=== PATIENT | male | born 1950 | race Caucasian/White ===

== ENCOUNTER 2018-11-21 16:56 | Emergency (ER) | payer BC ==
[~2018-11-21] VITALS: Ht 175.3 cm; Wt 93.9 kg
[~2018-11-21 16:56] MED LIST: ATOR40TA PO; Aspirin EC325 MG PO; CLOP75 PO; LISI5 PO; LOSA50 PO; METO25ER PO; NITR.6SL SL; OMEP40CA12 PO
[2018-11-21 18:14] LABS: BASOPHILS ABSOLUTE AUTO 0.08 K/mm3 (0.00-0.23); BASOPHILS PERCENT AUTO 1 % (0-2); EOSINOPHILS ABSOLUTE AUTO 0.44 K/mm3 (0.00-0.68); EOSINOPHILS PERCENT AUTO 5 % (0-6); Hematocrit 33.3 % (37.0-53.0); Hemoglobin 10.3 g/dL (13.5-17.5); IMMATURE GRAN ABSOLUTE AUTO 0.02 K/mm3 (0.00-0.10); IMMATURE GRAN PERCENT AUTO 0 % (0-1); LYMPHOCYTES ABSOLUTE AUTO 2.06 K/mm3 (0.84-5.20); LYMPHOCYTES PERCENT AUTO 23 % (21-46); MONOCYTES ABSOLUTE AUTO 1.16 K/mm3 (0.16-1.47); MONOCYTES PERCENT AUTO 13 % (4-13); Mean Corpuscular HGB Conc 30.9 g/dL (31.5-36.5); Mean Corpuscular Volume 94 fL (80-100); Mean Platelet Volume 10.7 fL (9.1-12.4); NEUTROPHILS PERCENT AUTO 59 % (41-73); Platelet Count 589 K/mm3 (150-400); RDW Coefficient Variation 13.6 % (11.7-14.2); RDW Standard Deviation 47.7 fL (35.1-46.3); Red Blood Cell Count 3.55 M/mm3 (4.30-5.90); White Blood Cell Count 9.16 K/mm3 (4.00-11.30)
[2018-11-21] MEDS ORDERED: REPATHA SU140 MG/1 M SC (18:27)
[2018-11-21] MEDS ORDERED: Lopressor 25 mg25 MG PO (18:28)
[2018-11-21 18:29] LABS: Source, Urine Clean Catch
[2018-11-21 18:34] LABS: Bilirubin, Urine Neg (Neg); Blood, Urine Neg (Neg); Glucose Qualitative, Urine Neg (Neg); Ketones, Urine Neg (Neg); Leukocyte Esterase, Urine 1+ (Neg); Nitrite, Urine Neg (Neg); Protein, Urine Neg (Neg); Specific Gravity, Urine 1.025 (1.003-1.022); Urobilinogen, Urine NORM (Normal)
[2018-11-21 18:59] LABS: Alanine Aminotransfer (ALT/SGP 23 U/L (12-78); Albumin, Blood 3.8 g/dL (3.4-5.0); Albumin/Globulin Ratio 1.2 (0.8-1.8); Alk Phos 76 U/L (50-136); Anion Gap 4 mmol/L (6-16); Aspartate Aminotrans (AST/SGOT 12 U/L (12-37); Bilirubin, Total 0.3 mg/dL (0.1-1.0); Blood Urea Nitrogen 18 mg/dL (8-24); Bun/Creatinine Ratio 20.7 (12.0-20.0); CO2, Blood 26 mmol/L (21-32); Calcium, Blood 8.6 mg/dL (8.5-10.1); Chloride, Blood 110 mmol/L (98-108); Creatinine, Blood 0.87 mg/dL (0.60-1.20); Globulin, Blood 3.2 g/dL (2.2-4.0); Glomerular Filtration Rate >60 (60-); Glucose, Blood 97 mg/dL (70-99); Potassium, Blood 3.9 mmol/L (3.5-5.5); Sodium, Blood 140 mmol/L (136-145)
[2018-11-21 19:01] LABS: Appearance, Urine Clear (Clear); Color, Urine Yellow (P-Yellow)
[2018-11-21 19:06] LABS: Bacteria Few /hpf; Red Blood Cells, Urine 0-2 /hpf (0-2); Squamous Epithelial Cells Rare /hpf (Few)
[2018-11-21] MEDS ORDERED: HYOS.125 PO (21:36)
[2018-11-21] MEDS ORDERED: CEPH500 PO (21:36)
[2018-11-21] MEDS ORDERED: Pyridium100 MG PO (21:36)
== END 2018-11-21 21:54 | disposition home or self-care (01) ==
LOC: ER 16:56
PROVIDERS: Physician Assistant
DX: N30.90 Cystitis, unspecified without hematuria (principal); R14.0 Abdominal distension (gaseous); Z91.018 Allergy to other foods; Z88.5 Allergy status to narcotic agent; Z79.899 Other long term (current) drug therapy; Z79.82 Long term (current) use of aspirin; E78.5 Hyperlipidemia, unspecified; I10 Essential (primary) hypertension; K21.9 Gastro-esophageal reflux disease without esophagitis; Z87.891 Personal history of nicotine dependence
CPT/HCPCS: 36415; 74177; 80053; 81001; 83690; 85025; 87086; 99284-25; Q9967

== ENCOUNTER 2019-10-30 07:51 | Day surgery (SDC) | payer BC ==
[~2019-10-30] VITALS: Ht 175.3 cm; Wt 93.0 kg
[~2019-10-30 07:51] MED LIST changes: +CEPH500 PO; +HYOS.125 PO; +Lopressor 25 mg25 MG PO; +Pyridium100 MG PO; +REPATHA SU140 MG/1 M SC
[2019-10-30] MEDS ORDERED: CLOP75 (08:14)
[2019-10-30] MEDS ORDERED: OMEP20ER (08:14)
--- NOTE | 2019-10-30 09:37 | NUR ---
10/30/19 0937 Lyndsey Dey PROBE 7 AT 40 COAG
== END 2019-10-30 10:04 | disposition home or self-care (01) ==
LOC: ORSCSDS 07:51
PROVIDERS: Internal Medicine Gastroenterology
PROC: 0DB98ZX Excision of Duodenum, Via Natural or Artificial Opening Endoscopic, Diagnostic (ICD-10-PCS; principal; 2019-10-30 09:15)
PROC: 0DB58ZX Excision of Esophagus, Via Natural or Artificial Opening Endoscopic, Diagnostic (ICD-10-PCS; principal; 2019-10-30 09:15)
PROC: 0DJD8ZZ Inspection of Lower Intestinal Tract, Via Natural or Artificial Opening Endoscopic (ICD-10-PCS; principal; 2019-10-30 09:15)
PROC: 0DB68ZX Excision of Stomach, Via Natural or Artificial Opening Endoscopic, Diagnostic (ICD-10-PCS; principal; 2019-10-30 09:15)
PROC: 0D568ZZ Destruction of Stomach, Via Natural or Artificial Opening Endoscopic (ICD-10-PCS; principal; 2019-10-30 09:15)
DX: K30 Functional dyspepsia (principal); R14.0 Abdominal distension (gaseous); K22.70 Barrett's esophagus without dysplasia; Q27.30 Arteriovenous malformation, site unspecified; K57.30 Diverticulosis of large intestine without perforation or abscess without bleeding; K63.89 Other specified diseases of intestine; K64.8 Other hemorrhoids; K44.9 Diaphragmatic hernia without obstruction or gangrene; K21.0 Gastro-esophageal reflux disease with esophagitis; E66.9 Obesity, unspecified; Z68.31 Body mass index [BMI] 31.0-31.9, adult; E78.5 Hyperlipidemia, unspecified; I25.10 Atherosclerotic heart disease of native coronary artery without angina pectoris; Z87.891 Personal history of nicotine dependence; Z79.01 Long term (current) use of anticoagulants; Z79.82 Long term (current) use of aspirin; Z79.899 Other long term (current) drug therapy
CPT/HCPCS: 88305; 88342; J0461; J2405; J2704; J7120

== ENCOUNTER 2020-04-13 23:35 | Emergency (ER) | payer OTHER, BC ==
[~2020-04-13] VITALS: Ht 167.6 cm; Wt 93.4 kg
[~2020-04-13 23:35] MED LIST changes: +CLOP75; +OMEP20ER
== END 2020-04-14 02:38 | disposition home or self-care (01) ==
LOC: ER 23:35
DX: R07.9 Chest pain, unspecified (principal); I10 Essential (primary) hypertension; K21.9 Gastro-esophageal reflux disease without esophagitis; E78.5 Hyperlipidemia, unspecified; Z79.899 Other long term (current) drug therapy; Z79.02 Long term (current) use of antithrombotics/antiplatelets; Z91.018 Allergy to other foods; Z88.5 Allergy status to narcotic agent; Z79.891 Long term (current) use of opiate analgesic; Z95.5 Presence of coronary angioplasty implant and graft
CPT/HCPCS: 71045; 84484; 93005; 93010; 99285-25

== ENCOUNTER 2023-10-19 09:59 | Emergency (ER) | payer MEDICARE ==
[~2023-10-19] VITALS: Ht 175.3 cm; Wt 97.5 kg
[2023-10-19] MEDS ORDERED: Cyclobenzaprine HCl 10 MG Tab PO ONE (10:10)
[2023-10-19] MEDS ORDERED: Dexamethasone Sod Phos 10 MG/ML 1ML VIAL PO ONE (10:10)
[2023-10-19] MEDS ORDERED: Ketorolac Tromethamine 30mg Vial IM ONE (10:10)
[2023-10-19] MEDS ORDERED: ROSUVASTATIN CA10 MG PO (10:17)
[2023-10-19] MEDS ORDERED: Aspir 8181 MG PO (10:17)
[2023-10-19] MEDS ORDERED: Voltaren100 GM TOP (10:47)
[2023-10-19] MEDS ORDERED: LIDO700A20 TOP (10:47)
[2023-10-19] MEDS ORDERED: CYCL10 PO (10:47)
[2023-10-19 11:00] VITALS: BP 155/91
== END 2023-10-19 11:00 | disposition home or self-care (01) ==
LOC: ER 09:59
DX: M75.31 Calcific tendinitis of right shoulder (principal); K21.9 Gastro-esophageal reflux disease without esophagitis; E78.5 Hyperlipidemia, unspecified; I10 Essential (primary) hypertension; Z87.891 Personal history of nicotine dependence; Z79.02 Long term (current) use of antithrombotics/antiplatelets; Z79.899 Other long term (current) drug therapy; Z91.018 Allergy to other foods; Z88.5 Allergy status to narcotic agent
CPT/HCPCS: 73030; 96372; 99283-25; A9270; J1100; J1885